=== PATIENT | female | born 1980 | race Caucasian/White ===

== ENCOUNTER 2020-04-14 15:29 | Emergency (ER) | payer SELFPAY ==
[~2020-04-14] VITALS: Ht 167.6 cm; Wt 49.9 kg
[2020-04-14 16:12] VITALS: BP 126/79; Ht 167.6 cm; Wt 49.9 kg
== END 2020-04-14 19:44 | disposition home or self-care (01) ==
LOC: ED 15:29
DX: M79.671 Pain in right foot (principal)

== ENCOUNTER 2020-04-15 06:18 | Emergency (ER) | payer SELFPAY ==
[~2020-04-15] VITALS: Ht 167.6 cm; Wt 46.0 kg
[2020-04-15 06:37] VITALS: BP 107/64; Ht 167.6 cm; Wt 46.0 kg
== END 2020-04-15 09:35 | disposition home or self-care (01) ==
LOC: ED 06:18
DX: L02.611 Cutaneous abscess of right foot (principal)
CPT/HCPCS: J2001